=== PATIENT | male | born 1965 ===

== ENCOUNTER 2016-08-28 13:44 | Emergency (ER) | payer OTHER ==
[2016-08-28] MEDS ORDERED: Sodium Chloride 0.9% 1,000 ML IV STA (15:13)
[2016-08-28 15:15] VITALS: RESP 18; O2SAT 98
--- NOTE | 2016-08-28 15:25 | ED PDOC ---
HPI: Nose Bleed Time Seen by Provider: 08/28/16 13:59 Chief Complaint (Nursing): ENT Problem Chief Complaint (Provider): Nosebleed History Per: Patient History/Exam Limitations: no limitations Onset/Duration Of Symptoms: Hrs (approx 10x hours (happened in the middle of the night)) Current Symptoms Are (Timing): Still Present Location Of Bleeding: Left Nare Severity: Moderate Associated Symptoms: Nasal Drainage (bloody), Other (spitting blood) Anticoagulant/Antiplatlet Use?: No Recent Aspirin Use: No Additional Complaint(s): 50 year old male patient with no pertinent medical history presents to the ED with complaints of a nosebleed that started in the middle of the night ( approximately 10 hours prior to arrival), that comes and goes, but has been continuously bleeding for the past 1x hour. He reports that this has never happened before. The blood comes form the left naris, and he reports that there is so much that it travels down his throat and he coughs it out. He also reports that he had a fever last night. He denies having a cough, chest pain, and a headache. He also denies taking blood thinners and aspirin. PMD: Patient does not have a PMD. Past Medical History Reviewed: Historical Data, Nursing Documentation, Vital Signs Vital Signs: Last Vital Signs Temp 98.1 F 08/28/16 15:14 Pulse 112 H 08/28/16 15:14 Resp 18 08/28/16 15:14 BP 154/113 H 08/28/16 15:14 Pulse Ox 98 08/28/16 15:14 - Medical History PMH: No Chronic Diseases - Surgical History Surgical History: No Surg Hx - Family History Family History: States: Unknown Family Hx - Social History Alcohol: None Drugs: Denies - Immunization History Hx Tetanus Toxoid Vaccination: No - Home Medications Home Medications: Ambulatory Orders Medication Instructions Recorded Amoxicillin/Clavulanate [Augmentin 1 tab PO BID #10 tab 08/28/16 875 MG-125 MG] Sodium Chloride [Saline Nasal 30 ml NS Q4 #1 spray 08/28/16 [place]] oxyCODONE/Acetaminophen [Percocet 1 ea PO Q6 PRN #6 tab 08/28/16 5/325 mg Tab] - Allergies Allergies/Adverse Reactions: Allergies Allergy/AdvReac Type Severity Reaction Status Date / Time No Known Allergies Allergy Verified 08/28/16 13:49 Review of Systems ROS Statement: Except As Marked, All Systems Reviewed And Found Negative Constitutional: Positive for: Fever (last night, has since resolved.) ENT: Positive for: Nose Discharge (blood) Cardiovascular: Negative for: Chest Pain Respiratory: Negative for: Shortness of Breath Neurological: Negative for: Headache Physical Exam - Reviewed Nursing Documentation Reviewed: Yes Vital Signs Reviewed: Yes - Physical Exam Appears: Positive for: Well, Non-toxic, No Acute Distress (appears to be having a nose bleed) Head Exam: Positive for: ATRAUMATIC, NORMOCEPHALIC Skin: Positive for: Normal Color, Warm, Dry ENT: Positive for: Pharynx Is (blood in the pharynx), Other (blood around the nose and mouth. Blood is coming from the left naris. Right naris is clear) Cardiovascular/Chest: Positive for: Tachycardia (regular rhythm) Respiratory: Positive for: Normal Breath Sounds. Negative for: Respiratory Distress Neurologic/Psych: Positive for: Alert, Oriented (3x) - Laboratory Results Result Diagrams: 08/28/16 15:48 08/28/16 15:48 - ECG O2 Sat by Pulse Oximetry: 98 (RA) Pulse Ox Interpretation: Normal - Progress Re-evaluation Time: 17:05 Condition: Re-examined, Improved Medical Decision Making Medical Decision Makin:59 Initial impression: 50 year old male with a nosebleed. Differential diagnoses include but are not limited to anterior epistaxis vs posterior epistaxis. Patient is incidentally hypertensive, hypertension is also a likely diagnosis. Initial plan: * type and screen * BMP * CBC with differential * PTT coag * prothrombin time * IV NS 1,000ml: 1,000mls/hr * tylenol 650mg PO * influenza AB * reevaluation 14:15 See procedure note for nasal packing procedure. Scribe Attestation: Documented by Pamela Riggs, acting as a scribe for Marshall Blackmon MD. Provider Scribe Attestation: All medical record entries made by the Scribe were at my direction and personally dictated by me. I have reviewed the chart and agree that the record accurately reflects my personal performance of the history, physical exam, medical decision making, and the department course for this patient. I have also personally directed, reviewed, and agree with the discharge instructions and disposition. Disposition - Clinical Impression Clinical Impression: Anterior Epistaxis - Patient ED Disposition Is Patient to be Admitted: No Doctor Will See Patient In The: Office Counseled Patient/Family Regarding: Studies Performed, Diagnosis, Need For Followup - Disposition Referrals: Luiz Jack MD [Staff Provider] - Donte Umana MD [Staff Provider] - Disposition: Routine/Home Disposition Time: 17:06 Condition: GOOD Additional Instructions: Follow up with ENT for packing removal in 48 hours. Sleep upright. Use normal saline spray in left nostril. Take medications as instructed. Avoid heavy exertion and lifting for next 2 days. Return for recurrent bleeding. Prescriptions: Amoxicillin/Clavulanate [Augmentin 875 MG-125 MG] 1 tab PO BID #10 tab oxyCODONE/Acetaminophen [Percocet 5/325 mg Tab] 1 ea PO Q6 PRN #6 tab PRN Reason: Pain, Moderate (4-7) Sodium Chloride [Saline Nasal [place]] 30 ml NS Q4 #1 spray Instructions: Nosebleed (ED) Procedures - Time-Out Type of Procedure: rapid rhino Site of Procedure: left naris Correct Patient (with visual ID + MR# on ID Band): Yes Correct Procedure: Yes Correct Site Marked: Yes Physician Name: Marshall Blackmon - Additional Procedures Progress: 14:15 Epistaxis is controlled. Procedure is performed by me. Informed consent, after discussion of the risks, benefits, and alternatives to the procedure was obtained. Nasal packing with the rapid rhino for patient's interior epistaxis. Used 1% lidocaine, topical anesthesia. Procedure went well, patient tolerated the pain well. Balloon was inflated to 5cc normal saline. Upon reevaluation, the bleeding stopped after procedure.
[2016-08-28 15:52] LABS: BASO % 0.5 % (0.0-2.0); EOS # 0.1 K/uL (0.0-0.7); EOS % 1.5 % (0.0-4.0); LYMPH # 3.2 K/uL (1.0-4.3); LYMPH % 39.7 % (20.0-40.0); MEAN CELL VOLUME 84.7 fl (80.0-94.0); MEAN CORPUSCULAR HEMOGLOBIN 28.5 pg (27.0-31.0); MEAN CORPUSCULAR HGB CONC 33.7 g/dL (33.0-37.0); MONO # 0.6 K/uL (0.0-0.8); MONO % 6.9 % (0.0-10.0); NEUT # 4.1 K/uL (1.8-7.0); NEUT % 51.4 % (50.0-75.0); NRBC % 0.1 % (0.0-0.0); RED CELL DISTRIBUTION WIDTH 14.3 % (11.5-14.5); WHITE BLOOD COUNT 7.9 K/uL (4.8-10.8)
[2016-08-28 15:57] VITALS: TEMP 100.1
[2016-08-28 16:03] LABS: BLOOD UREA NITROGEN 11 mg/dl (9-20); CALCIUM 9.4 mg/dL (8.4-10.2); CARBON DIOXIDE 24 mmol/L (22-30); CHLORIDE 102 mmol/L (98-107); GFR AFRICAN-AMERICAN > 60; GLUCOSE,RANDOM 128 mg/dL (75-110); POTASSIUM 3.9 MMOL/L (3.6-5.0); SODIUM 143 mmol/l (132-148)
[2016-08-28 16:10] LABS: PARTIAL THROMBOPLASTIN TIME 26.9 SECONDS (23.3-32.5)
[2016-08-28 17:16] VITALS: BP 158/84; PULSE 94
== END 2016-08-28 17:31 | disposition home or self-care (01) ==
LOC: H.ER 13:44
DX: R04.0 Epistaxis (principal); I10 Essential (primary) hypertension

== ENCOUNTER 2016-08-30 14:24 | Emergency (ER) | payer SELFPAY ==
[2016-08-30 14:48] VITALS: TEMP 99.2
--- NOTE | 2016-08-30 15:40 | ED PDOC ---
HPI: General Adult Time Seen by Provider: 08/30/16 15:15 Chief Complaint (Nursing): ENT Problem Chief Complaint (Provider): elevated blood pressure History Per: Patient (50 y/o male sent from Dr. Umana's office for evaluation of elevated blood pressure noted during visit. Patient was to have packing removed but sent to ED for evaluation. Patient denies any chest pain/abdominal pain/headache/sob/decreased urination.) Past Medical History Reviewed: Historical Data, Nursing Documentation, Vital Signs Vital Signs: Last Vital Signs Temp 99.2 F 08/30/16 14:45 Pulse 94 H 08/30/16 14:45 Resp 20 08/30/16 14:45 BP 172/102 H 08/30/16 15:15 Pulse Ox 99 08/30/16 14:45 - Family History Family History: States: Unknown Family Hx - Immunization History Hx Tetanus Toxoid Vaccination: No - Home Medications Home Medications: Ambulatory Orders Medication Instructions Recorded Amoxicillin/Clavulanate [Augmentin 1 tab PO BID #10 tab 08/28/16 875 MG-125 MG] Sodium Chloride [Saline Nasal 30 ml NS Q4 #1 spray 08/28/16 [place]] oxyCODONE/Acetaminophen [Percocet 1 ea PO Q6 PRN #6 tab 08/28/16 5/325 mg Tab] amLODIPine [Norvasc] 1 tab PO DAILY #15 tab 08/30/16 - Allergies Allergies/Adverse Reactions: Allergies Allergy/AdvReac Type Severity Reaction Status Date / Time No Known Allergies Allergy Verified 08/28/16 13:49 Review of Systems ROS Statement: Except As Marked, All Systems Reviewed And Found Negative Physical Exam - Reviewed Nursing Documentation Reviewed: Yes Vital Signs Reviewed: Yes - Physical Exam Appears: Positive for: Well, Non-toxic, No Acute Distress Head Exam: Positive for: ATRAUMATIC, NORMAL INSPECTION, NORMOCEPHALIC Skin: Positive for: Normal Color, Warm, DRY Eye Exam: Positive for: EOMI, Normal appearance, PERRL ENT: Positive for: Normal ENT Inspection Neck: Positive for: Normal, Painless ROM Cardiovascular/Chest: Positive for: Regular Rate, Rhythm Respiratory: Positive for: CNT, Normal Breath Sounds Gastrointestinal/Abdominal: Positive for: Normal Exam, Bowel Sounds, Soft Back: Positive for: Normal Inspection Extremity: Positive for: Normal ROM Neurologic/Psych: Positive for: Alert, Oriented - ECG O2 Sat by Pulse Oximetry: 99 - Progress ED Course And Treament: Repeat BP manual and automated noted 170/100. Norvasc 5 mg x 1 dose in ED. d/w Dr. Umana. Patient to f/u with [facility] for further management of blood pressure. Disposition - Clinical Impression Clinical Impression: Hypertension - Patient ED Disposition Is Patient to be Admitted: No - Disposition Referrals: [facility] [Outside] Disposition: Routine/Home Disposition Time: 15:41 Condition: FAIR Prescriptions: amLODIPine [Norvasc] 1 tab PO DAILY #15 tab Instructions: DASH Eating Plan (ED), Hypertension (ED) Forms: [facility] ED School/Work Excuse Print Language: INDIAN
[2016-08-30 16:21] VITALS: BP 152/90; PULSE 78; RESP 16; O2SAT 100
== END 2016-08-30 16:21 | disposition home or self-care (01) ==
LOC: H.ER 14:24
DX: I10 Essential (primary) hypertension (principal)

== ENCOUNTER 2017-01-15 12:47 | Emergency (ER) | payer SELFPAY ==
[2017-01-15] MEDS ORDERED: Silver Nitrate Topical - Stick TOP ONE (13:37)
[2017-01-15] MEDS ORDERED: Silver Nitrate Topical - Stick ONE (13:48)
--- NOTE | 2017-01-15 14:10 | ED PDOC ---
HPI: General Adult Time Seen by Provider: 01/15/17 13:13 Chief Complaint (Nursing): ENT Problem History Per: Patient Additional Complaint(s): Pt. states for the past 3 days he's had intermittent L nostril bleeding which now has travelled to the R nostril. Reports a hx of frequent epistaxis. Also states he does have a hx of HTN but not has taken his meds in over 3 months as he depleted his initial supply. Denies headache, chest pain, abdominal pain, SOB , visual changes. Past Medical History Reviewed: Historical Data, Nursing Documentation, Vital Signs Vital Signs: Last Vital Signs Temp 98.4 F 01/15/17 13:00 Pulse 85 01/15/17 13:00 Resp 20 01/15/17 13:00 BP 195/92 H 01/15/17 13:00 Pulse Ox 98 01/15/17 14:10 - Medical History PMH: HTN - Family History Family History: States: Unknown Family Hx - Immunization History Hx Tetanus Toxoid Vaccination: No - Home Medications Home Medications: Ambulatory Orders Medication Instructions Recorded Amoxicillin/Clavulanate [Augmentin 1 tab PO BID #10 tab 08/28/16 875 MG-125 MG] Sodium Chloride [Saline Nasal 30 ml NS Q4 #1 spray 08/28/16 [place]] oxyCODONE/Acetaminophen [Percocet 1 ea PO Q6 PRN #6 tab 08/28/16 5/325 mg Tab] amLODIPine [Norvasc] 1 tab PO DAILY #15 tab 08/30/16 Enalapril Maleate [Vasotec] 1 tab PO DAILY #15 tab 01/15/17 Sodium Chloride [Saline Nasal Mist] 2 - 3 spray NS Q4 PRN #1 bottle 01/15/17 - Allergies Allergies/Adverse Reactions: Allergies Allergy/AdvReac Type Severity Reaction Status Date / Time No Known Allergies Allergy Verified 08/28/16 13:49 Review of Systems ROS Statement: Except As Marked, All Systems Reviewed And Found Negative Physical Exam - Reviewed Nursing Documentation Reviewed: Yes Vital Signs Reviewed: Yes - Physical Exam Appears: Positive for: Well, Non-toxic, No Acute Distress Head Exam: Positive for: ATRAUMATIC, NORMAL INSPECTION, NORMOCEPHALIC Skin: Positive for: Normal Color, Warm. Negative for: Rash Eye Exam: Positive for: EOMI, Normal appearance, PERRL ENT: Positive for: Other (dry blood noted b/l in nostrils with bleeding site identified on L anterior nasal septum) Neck: Positive for: Normal, Painless ROM Cardiovascular/Chest: Positive for: Regular Rate, Rhythm Respiratory: Positive for: CNT, Normal Breath Sounds Gastrointestinal/Abdominal: Positive for: Normal Exam, Bowel Sounds, Soft Back: Positive for: Normal Inspection Extremity: Positive for: Normal ROM Neurologic/Psych: Positive for: Alert, Oriented - Laboratory Results Result Diagrams: 01/15/17 14:15 01/15/17 14:15 - ECG ECG: Positive for: Interpreted By Me ECG Rhythm: Positive for: Sinus Rhythm. Negative for: ST/T Changes Rate: 73 O2 Sat by Pulse Oximetry: 98 - Progress Re-evaluation Time: 16:21 (No bleeding in ED. Repeat BP: 168/97.) Condition: Re-examined Procedures - Time-Out Type of Procedure: Silver nitrate application Site of Procedure: both nares Correct Patient (with visual ID + MR# on ID Band): Yes Correct Procedure: Yes Correct Site Marked: Yes PA/Tech: Osmin SIMMS - Additional Procedures Progress: Silver nitrate applied to both anterior nasal septums with good hemostasis achieved. Disposition - Clinical Impression Clinical Impression: Hypertension, Epistaxis - Patient ED Disposition Is Patient to be Admitted: No - Disposition Referrals: Luiz Jack MD [Staff Provider] - [facility] [Outside] Disposition: Routine/Home Disposition Time: 16:22 Condition: IMPROVED Prescriptions: Enalapril Maleate [Vasotec] 1 tab PO DAILY #15 tab Sodium Chloride [Saline Nasal Mist] 2 - 3 spray NS Q4 PRN #1 bottle PRN Reason: Nasal Congestion Instructions: Hypertension (ED), DASH Eating Plan (ED), Nosebleed (ED) Print Language: SERBIAN
[2017-01-15 14:18] LABS: BASO # 0.1 K/uL (0.0-0.2); BASO % 0.8 % (0.0-2.0); EOS # 0.1 K/uL (0.0-0.7); EOS % 1.7 % (0.0-4.0); HEMOGLOBIN 13.4 g/dL (12.0-18.0); LYMPH # 1.6 K/uL (1.0-4.3); LYMPH % 23.7 % (20.0-40.0); MEAN CELL VOLUME 82.6 fl (80.0-94.0); MEAN CORPUSCULAR HEMOGLOBIN 27.5 pg (27.0-31.0); MEAN CORPUSCULAR HGB CONC 33.3 g/dL (33.0-37.0); MEAN PLATELET VOLUME 8.8 fl (7.2-11.7); MONO # 0.6 K/uL (0.0-0.8); MONO % 8.9 % (0.0-10.0); NEUT # 4.5 K/uL (1.8-7.0); NEUT % 64.9 % (50.0-75.0); RBC 4.87 Mil/uL (4.40-5.90); RED CELL DISTRIBUTION WIDTH 15.9 % (11.5-14.5); WHITE BLOOD COUNT 6.9 K/uL (4.8-10.8)
[2017-01-15 14:34] LABS: ALB/GLOB RATIO 1.5 (1.0-2.1); ALBUMIN 4.4 g/dL (3.5-5.0); ALT/SGPT 50 U/L (21-72); AST/SGOT 31 U/L (17-59); BLOOD UREA NITROGEN 14 mg/dl (9-20); CALCIUM 9.5 mg/dL (8.4-10.2); GFR AFRICAN-AMERICAN > 60; GFR NON-AFRICAN AMERICAN > 60
[2017-01-15 16:44] VITALS: BP 168/74; PULSE 87; RESP 18; TEMP 98.1; O2SAT 99
--- NOTE | 2017-01-16 09:42 | CARD ---
APPROVED REPORT EKG Measurement Heart [id number] <Conclusion> Normal sinus rhythm Normal ECG
== END 2017-01-15 16:30 | disposition home or self-care (01) ==
LOC: H.ER 12:47
DX: R04.0 Epistaxis (principal); I10 Essential (primary) hypertension